=== PATIENT | female | born 1930 | race Caucasian/White ===

== ENCOUNTER 2018-06-11 16:55 | Emergency (ER) | payer OTHER ==
[~2018-06-11] VITALS: Ht 139.7 cm; Wt 40.8 kg
[2018-06-11] MEDS ORDERED: COZAAR100 MG (17:34)
[2018-06-11] MEDS ORDERED: XANAX0.25 MG (17:35)
[2018-06-11] MEDS ORDERED: LEVAQUIN750 MG (17:35)
[2018-06-11] MEDS ORDERED: ZYNCOF 20-400120 ML (17:35)
== END 2018-06-12 01:02 | disposition home or self-care (01) ==
LOC: ER 16:55
DX: E86.0 Dehydration (principal); R63.0 Anorexia; I16.0 Hypertensive urgency; I10 Essential (primary) hypertension; G30.8 Other Alzheimer's disease; F02.80 Dementia in other diseases classified elsewhere, unspecified severity, without behavioral disturbance, psychotic disturbance, mood disturbance, and anxiety